=== PATIENT | male | born 1965 | race Two or more races ===

== ENCOUNTER → 2018-01-19 | Outpatient (CLI) | payer OTHER ==
[2018-01-19 17:47] LABS: ALT 89 U/L (21-72); AST 43 U/L (17-59); Albumin 4.7 g/dL (3.5-5.0); Alkaline Phosphatase 78 U/L (38-126); Anion Gap 10 mmol/L; Blood Urea Nitrogen 15 mg/dL (9-20); Calcium 9.7 mg/dL (8.4-10.2); Carbon Dioxide 26 mmol/L (22-30); Chloride 105 mmol/L (98-107); Glucose 70 mg/dL (74-99); Potassium 4.4 mmol/L (3.5-5.1); Sodium 141 mmol/L (137-145); Total Bilirubin 0.7 mg/dL (0.2-1.3); Total Protein 8.1 g/dL (6.3-8.2); Uric Acid 7.6 mg/dL (3.5-8.5)
== END | disposition home or self-care (01) ==
LOC: LABWHC1 17:07
PROVIDERS: ATTEND Internal Medicine
DX: M65.9 Synovitis and tenosynovitis, unspecified (principal)
CPT/HCPCS: 36415; 80053; 84550

== ENCOUNTER → 2018-10-16 | Outpatient (CLI) | payer OTHER ==
[2018-10-16 09:17] LABS: HCT 45.4 % (39.0-53.0); HGB 15.5 gm/dL (13.0-17.5); MCH 29.8 pg (25.0-35.0); MCHC 34.3 g/dL (31.0-37.0); MCV 86.9 fL (80.0-100.0); Mean Platelet Volume 6.9; Platelet Count 258 k/uL (150-450); RBC 5.22 m/uL (4.30-5.90); RDW 14.1 % (11.5-15.5); WBC 6.2 k/uL (3.8-10.6)
[2018-10-16 10:10] LABS: Appearance,Urine Clear (Clear); Bilirubin,Urine Negative (Negative); Blood,Urine Negative (Negative); Color,Urine Light Yellow; Glucose,Urine (UA) Negative (Negative); Ketones,Urine Negative (Negative); Leukocyte Esterase,Urine Negative (Negative); Nitrite,Urine Negative (Negative); Protein,Urine Negative (Negative); Urobilinogen,Urine <2.0 mg/dL (<2.0)
[2018-10-16 17:54] LABS: Albumin 4.6 g/dL (3.80-4.90); Albumin/Globulin Ratio 2.09 (1.60-3.17); Anion Gap 8.2 mmol/L (4.00-12.00); BUN/Creat Ratio 14.44 Ratio (12.00-20.00); Calcium 9.7 mg/dL (8.7-10.3); Carbon Dioxide 26.8 mmol/L (21.6-31.8); Globulin 2.2 g/dL (1.6-3.3); LDL Cholesterol,Calculated 96.6 mg/dL (0.0-131.0); Potassium 4.9 mmol/L (3.5-5.5); Total Bilirubin 0.4 mg/dL (0.2-1.2); Total Protein 6.8 g/dL (6.2-8.2); Uric Acid 6.9 mg/dL (3.7-8.7); VLDL Calculation 34.4 mg/dL (5.00-40.00)
== END | disposition home or self-care (01) ==
LOC: LABWHC1 08:27
PROVIDERS: ATTEND Internal Medicine
DX: E78.5 Hyperlipidemia, unspecified (principal); M10.9 Gout, unspecified; Z12.5 Encounter for screening for malignant neoplasm of prostate
CPT/HCPCS: 80061; 80053; 84550; 85027; 81003; 36415; G0103

== ENCOUNTER → 2019-12-20 | Outpatient (CLI) | payer OTHER ==
--- NOTE | 2019-12-23 08:15 | XR ---
EXAMINATION TYPE: XR knee complete bilateral DATE OF EXAM: 12/20/2019 CLINICAL HISTORY: Bilateral knee pain. TECHNIQUE: Three views of the bilateral knees are obtained. COMPARISON: None. FINDINGS: There is no acute fracture/dislocation evident in either knee. Moderate to severe medial t ibiofemoral compartment joint space loss and spurring bilaterally left more prominent than right is p resent. Left knee shows additional mild to moderate lateral spurring. There is mild to moderate narro wing with severe spurring bilateral patellofemoral compartments fairly symmetric in appearance. Addit ional spur from the anterior superior patella at the distal quadriceps tendon attachment is noted. Th e overlying soft tissue appears unremarkable bilaterally. IMPRESSION: As above.
== END | disposition home or self-care (01) ==
LOC: RAD 15:36
PROVIDERS: ATTEND Internal Medicine
DX: M25.761 Osteophyte, right knee (principal); M25.762 Osteophyte, left knee; M22.2X2 Patellofemoral disorders, left knee; M22.2X1 Patellofemoral disorders, right knee; M25.862 Other specified joint disorders, left knee; M25.861 Other specified joint disorders, right knee

== ENCOUNTER → 2020-06-04 | Outpatient (CLI) | payer OTHER ==
--- NOTE | 2020-06-04 16:32 | XR ---
EXAMINATION TYPE: XR chest 2V DATE OF EXAM: 06/04/2020 COMPARISON: None INDICATION: Sternal chest pain TECHNIQUE: Frontal and lateral views of the chest are obtained. FINDINGS: The heart size is normal. The pulmonary vasculature is normal. The lungs are clear. Sternum appears intact. Retrosternal space is normal. IMPRESSION: 1. No acute pulmonary process.
== END | disposition home or self-care (01) ==
LOC: RADXRMAIN 15:44
PROVIDERS: ATTEND Internal Medicine
DX: M94.0 Chondrocostal junction syndrome [Tietze] (principal)
CPT/HCPCS: 71046

== ENCOUNTER 2020-07-17 12:13 | Emergency (ER) | payer OTHER ==
[2020-07-17 12:27] VITALS: RESP 20
[2020-07-17] MEDS ORDERED: KETOROLAC 15 MG/ML 1 ML VIAL IM STA (12:44)
[2020-07-17] MEDS ORDERED: HYDROcodone/APAP 5-325MG 1 EACH TAB PO STA (12:44)
--- NOTE | 2020-07-17 13:51 | ED ---
Upper Extremity HPI - General Chief Complaint: Extremity Injury, Upper Stated Complaint: Arm pain Time Seen by Provider: 07/17/20 12:33 Source: patient Mode of arrival: ambulatory Limitations: no limitations - History of Present Illness Initial Comments: Patient complains of an injury to his left elbow. He did not get hit in the head or lose conscious. His pain is worse with movement. He has taken no medicines for this. He denies any weakness makes remedy. He has no paresthesias. He has no other problems or complaints. - Related Data Allergies Allergy/AdvReac Type Severity Reaction Status Date / Time No Known Allergies Allergy Verified 07/17/20 12:27 Review of Systems ROS Statement: Those systems with pertinent positive or pertinent negative responses have been documented in the HPI. ROS Other: All systems not noted in ROS Statement are negative. Past Medical History Past Medical History: No Reported History History of Any Multi-Drug Resistant Organisms: None Reported Past Surgical History: No Surgical Hx Reported Past Psychological History: No Psychological Hx Reported Smoking Status: Never smoker Past Alcohol Use History: None Reported Past Drug Use History: None Reported General Exam Limitations: no limitations General appearance: alert, in no apparent distress Head exam: Present: atraumatic Extremities exam: Present: normal inspection, tenderness, normal capillary refill. Absent: joint swelling Back exam: Present: full ROM Neurological exam: Present: alert, oriented X3 Skin exam: Present: warm, dry, intact Course Vital Signs 07/17/20 12:25 Temperature 98.4 F Pulse Rate 77 Respiratory 20 Rate Blood Pressure 172/99 O2 Sat by Pulse 99 Oximetry Medical Decision Making - Medical Decision Making Patient presents with injuries. X-rays are all negative. He is given IM Toradol and oral [place]. He feels better. He is stable for discharge. Disposition Clinical Impression: Elbow contusion Disposition: HOME SELF-CARE Condition: Good Instructions (If sedation given, give patient instructions): Elbow Sprain (ED) Is patient prescribed a controlled substance at d/c from ED?: No Referrals: Neville Sheppard MD [Primary Care Provider] - 1-2 days Juan F Gold DO [Doctor of Osteopathic Medicine] - 1-2 days
[2020-07-17 14:33] VITALS: BP 142/83; PULSE 68; TEMP 98.9
== END 2020-07-17 14:22 | disposition home or self-care (01) ==
LOC: EC 12:13
DX: S50.02XA Contusion of left elbow, initial encounter (principal); X58.XXXA Exposure to other specified factors, initial encounter
CPT/HCPCS: 96372; 99283

== ENCOUNTER → 2020-07-17 | Outpatient (CLI) | payer OTHER ==
--- NOTE | 2020-07-17 13:42 | XR ---
EXAMINATION TYPE: XR forearm LT DATE OF EXAM: 07/17/2020 COMPARISON: NONE HISTORY: Pain Two views of the forearm demonstrate that the osseous structures appear to be intact and the joint sp aces appear to be preserved. There is no acute fracture or dislocation. There is a spur extending o ff the olecranon. Remaining osseous structures intact. IMPRESSION: 1. No acute fracture or dislocation
--- NOTE | 2020-07-17 13:44 | XR ---
EXAMINATION TYPE: XR elbow complete LT DATE OF EXAM: 07/17/2020 COMPARISON: NONE HISTORY: Pain FINDINGS: Three views of the elbow demonstrate no pathologic joint effusion. The osseous structures are intact . There is olecranon spur with soft tissue well-corticated ossification. Tiny spur extending off the radial head. IMPRESSION: 1. No definite acute fracture.
--- NOTE | 2020-07-17 16:10 | XR ---
EXAMINATION TYPE: XR hand complete LT DATE OF EXAM: 07/17/2020 COMPARISON: NONE HISTORY: 55-year-old male M79.642, fall today, pain. TECHNIQUE: 3 views FINDINGS: Tiny loose body or fragmented spur along the ulnar aspect of the third PIP joint. Benign bone island within the distal radial metaphysis. Corticated bone density measuring 3 mm adjacent to the ulnar sty loid process suggesting either a accessory ossicle or sequela of remote injury. Mild degenerative lillian nge at the first CMC joint. Sclerotic appearance to the phalanges on the AP view does not persist on the oblique and lateral views. This suggests projectional artifact. No acute fracture, subluxation, o r dislocation seen. IMPRESSION: No acute osseous abnormality seen. 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
== END | disposition home or self-care (01) ==
LOC: RADXRMAIN 11:36
PROVIDERS: ATTEND Internal Medicine
DX: M19.042 Primary osteoarthritis, left hand (principal); M25.522 Pain in left elbow; M79.632 Pain in left forearm; W19.XXXA Unspecified fall, initial encounter

== ENCOUNTER → 2021-04-01 | Outpatient (CLI) | payer OTHER ==
[2021-04-02 00:54] LABS: ALT 177 U/L (10-49); AST 140 U/L (14-35); African American GFR (CKD) 106.7 (60.0-200.0); Albumin 4.9 g/dL (3.8-4.9); Albumin/Globulin Ratio 1.66 (1.60-3.17); Alkaline Phosphatase 114 U/L (41-126); Blood Urea Nitrogen 13.8 mg/dL (9.0-27.0); Carbon Dioxide 25.1 mmol/L (20.0-27.5); Chloride 101 mmol/L (96-109); Chol/HDL Ratio 4.05 Ratio; Creatine Kinase 117 U/L (35-257); Glucose 91 mg/dL (70-110); LDL Cholesterol,Calculated 119.4 mg/dL (0.0-131.0); Non-African American GFR(CKD) 92.1 (60.0-200.0); Potassium 4.6 mmol/L (3.5-5.5); Sodium 139 mmol/L (135-145); Total Protein 7.9 g/dL (6.2-8.2); Uric Acid 7.2 mg/dL (3.7-8.7)
== END | disposition home or self-care (01) ==
LOC: LABWHC1 14:40
PROVIDERS: ATTEND Internal Medicine
DX: E78.5 Hyperlipidemia, unspecified (principal); M10.9 Gout, unspecified
CPT/HCPCS: 36415; 80053; 80061; 82550; 84550

== ENCOUNTER → 2021-07-08 | Outpatient (CLI) | payer OTHER ==
--- NOTE | 2021-07-08 15:15 | US ---
EXAMINATION TYPE: US abdomen complete DATE OF EXAM: 07/08/2021 COMPARISON: NONE CLINICAL HISTORY: R74.01 ELEVATED LIVER TRANSAMINASE LEVELS. EXAM MEASUREMENTS: Liver Length: 15.9 cm Gallbladder Wall: 0.2 cm CBD: 0.4 cm Spleen: 9.7 cm Right Kidney: 10.2 x 4.4 x 5.3 cm Left Kidney: 9.6 x 5.6 x 5.2 cm Extensive midline bowel gas, technically difficult limited study. Pancreas: Not well seen Liver: Increased attenuation, probable focal fatty sparing adjacent to gallbladder Gallbladder: wnl Evidence for sonographic Lucero's sign: no CBD: wnl Spleen: wnl Right Kidney: No hydronephrosis or masses seen Left Kidney: No hydronephrosis or masses seen Upper IVC: wnl Abd Aorta: partially obscured by overlying bowel gas, portions visualized wnl, no evident aneurysm The liver shows no mass. The intrahepatic portion of the IVC and proximal abdominal aorta are within normal limits. There is no evidence of cholelithiasis. Common bile duct is unremarkable. The visu alized portions of the pancreas are homogenous. The spleen is unremarkable. Kidneys are symmetric a nd free of hydronephrosis. No renal lesions are seen. IMPRESSION: Correlate for hepatic steatosis.
== END | disposition home or self-care (01) ==
LOC: RADUSWWP 12:01
PROVIDERS: ATTEND Internal Medicine
DX: R74.01 Elevation of levels of liver transaminase levels (principal)
CPT/HCPCS: 76700